=== PATIENT | female | born 1975 | race Caucasian/White ===

== ENCOUNTER 2018-06-29 19:57 | Emergency (ER) | payer BC ==
[~2018-06-29] VITALS: Ht 160 cm; Wt 90.7 kg
[~2018-06-29 19:57] MED LIST: CRUTCH4 USE; CYCL10 PO; HYDACE5 PO; IBUP600 PO; IBUP800 PO; MULVITMIND PO
[2018-06-29] MEDS ORDERED: Norco 5-325 Ta1 EACH PO (23:23)
[2018-06-29] MEDS ORDERED: ANASTIA15 GM TOP (23:24)
== END 2018-06-29 23:55 | disposition home or self-care (01) ==
LOC: ER 19:57
DX: T25.121A Burn of first degree of right foot, initial encounter (principal); T25.122A Burn of first degree of left foot, initial encounter; T25.112A Burn of first degree of left ankle, initial encounter; T31.0 Burns involving less than 10% of body surface; X08.8XXA Exposure to other specified smoke, fire and flames, initial encounter; Z88.0 Allergy status to penicillin
CPT/HCPCS: 16000; 36415; 90471; 90714; 96374-59; 99283-25; A9270-GY; J3010

== ENCOUNTER 2019-08-14 01:26 | Emergency (ER) | payer BC ==
[~2019-08-14] VITALS: Ht 165.1 cm; Wt 113.4 kg
[~2019-08-14 01:26] MED LIST changes: +ANASTIA15 GM TOP; +Norco 5-325 Ta1 EACH PO
[2019-08-14] MEDS ORDERED: Mupirocin22 GM TOP (02:29)
[2019-08-14] MEDS ORDERED: Bactrim 400-801 EACH PO (02:29)
[2019-08-14] MEDS ORDERED: CEPH500 PO (02:29)
== END 2019-08-14 02:40 | disposition home or self-care (01) ==
LOC: ER 01:26
DX: L03.116 Cellulitis of left lower limb (principal); Z88.0 Allergy status to penicillin
CPT/HCPCS: 99281; A9270-GY